=== PATIENT | female | born 1965 | race Caucasian/White ===

== ENCOUNTER 2023-03-23 06:37 | Day surgery (SDC) | payer MEDICAID ==
[~2023-03-23] VITALS: Ht 162.6 cm; Wt 84.4 kg
[2023-03-23] MEDS ORDERED: SIMETHICONE 40 MG/0.6 ML ML ONE (07:35)
[2023-03-23] MEDS ORDERED: MIDAZOLAM HCL 5 MG/5 ML VIAL ONE (07:36)
[2023-03-23] MEDS ORDERED: MEPERIDINE 100 MG INJ. 100 MG/ML VIAL ONE (07:36)
[2023-03-23 08:04] VITALS: O2SAT 95
[2023-03-23 14:42] VITALS: BP_SYST 103; PULSE 73; RESP 20
== END 2023-03-23 09:30 | disposition home or self-care (01) ==
LOC: SDS 06:37 → SMU 06:45 → SDS 09:30
PROVIDERS: ATTEND Student in an Organized Health Care Education/Training Program
DX: K62.5 Hemorrhage of anus and rectum (principal); D12.0 Benign neoplasm of cecum; D12.3 Benign neoplasm of transverse colon; K57.30 Diverticulosis of large intestine without perforation or abscess without bleeding; K64.8 Other hemorrhoids; Z79.899 Other long term (current) drug therapy
CPT/HCPCS: 45385; 99152; 88305; 99153; G0378; J2250; J2175